=== PATIENT | female | born 1935 | race Caucasian/White ===

== ENCOUNTER 2017-01-02 07:00 | Day surgery (SDC) | payer OTHER ==
[~2017-01-02] VITALS: Ht 154.9 cm; Wt 61.8 kg
[~2017-01-02 07:00] MED LIST: ALBUTEROL SULFATE 2.5 MG/0.5 ML NEB SOLUTION NEB ONE; BENZOCAINE 20% 50 MCG/SPRAY 57 GM ONE; LIDOCAINE HCL 2% 30 ML JELLY ONE; LIDOCAINE HCL 4% 50 ML SOLUTION ONE; SODIUM CHLORIDE 0.9% 1,000 ML IV ONE
[2017-01-02] MEDS ORDERED: SODIUM CHLORIDE 0.9% 1,000 ML IV ONE (07:10)
[2017-01-02] MEDS ORDERED: MONT10TA21 PO (07:53)
[2017-01-02] MEDS ORDERED: OMEP20 PO (07:54)
[2017-01-02] MEDS ORDERED: LEVO500 PO (07:54)
[2017-01-02] MEDS ORDERED: SUCR1TAB PO (07:55)
[2017-01-02] MEDS ORDERED: FLUT16H NASAL (08:00)
[2017-01-02] MEDS ORDERED: MIDAZOLAM HCL 2 MG/2 ML VIAL ONE (08:01)
[2017-01-02] MEDS ORDERED: FentaNYL CITRATE-PF 100 MCG/2 ML VIAL ONE (08:01)
[2017-01-02] MEDS ORDERED: PROM5SYR2 PO (08:02)
[2017-01-02] MEDS ORDERED: IPRA4AER IH (08:03)
[2017-01-02] MEDS ORDERED: ALBU8.5H8 IH (08:04)
[2017-01-02] MEDS ORDERED: IPRAHFA IH (08:04)
[2017-01-02] MEDS ORDERED: MethylPREDNISolone SOD SUCC 125 MG/2 ML VIAL IVP ONE (09:00)
[2017-01-02] MEDS ORDERED: MethylPREDNISolone SOD SUCC 125 MG/2 ML VIAL ONE (09:29)
[2017-01-02] MEDS ORDERED: OXYGEN THERAPY IH SCH (20:00)
== END 2017-01-02 12:10 | disposition home or self-care (01) ==
LOC: SURGERY 07:00
PROVIDERS: ATTEND Internal Medicine Critical Care Medicine
DX: J38.4 Edema of larynx (principal); B37.0 Candidal stomatitis; J45.909 Unspecified asthma, uncomplicated; Z87.891 Personal history of nicotine dependence; Z90.49 Acquired absence of other specified parts of digestive tract; Z98.890 Other specified postprocedural states; Z87.01 Personal history of pneumonia (recurrent)
CPT/HCPCS: 31623; 31624; 71010; 87015 ×2; 87070; 87101; 87147; 87205; 87220; 88108; 88312; J2250; J2930; J3010; J7030